=== PATIENT | male | born 1975 | race Two or more races ===

== ENCOUNTER 2019-01-23 17:56 | Emergency (ER) | payer OTHER ==
[~2019-01-23] VITALS: Ht 170.2 cm; Wt 88.5 kg
== END 2019-01-23 21:12 | disposition home or self-care (01) ==
LOC: ER 17:56
DX: S42.252A Displaced fracture of greater tuberosity of left humerus, initial encounter for closed fracture (principal); W18.39XA Other fall on same level, initial encounter; Y93.89 Activity, other specified; Y92.098 Other place in other non-institutional residence as the place of occurrence of the external cause; Y99.8 Other external cause status

== ENCOUNTER 2022-10-08 08:18 | Emergency (ER) | payer OTHER ==
[~2022-10-08] VITALS: Ht 170.2 cm; Wt 95.3 kg
== END 2022-10-08 10:22 | disposition home or self-care (01) ==
LOC: ER 08:18
DX: M25.59 Pain in other specified joint (principal)

== ENCOUNTER 2022-10-25 08:08 | Emergency (ER) | payer OTHER ==
[~2022-10-25] VITALS: Ht 170.2 cm; Wt 94.8 kg
== END 2022-10-25 10:53 | disposition home or self-care (01) ==
LOC: ER 08:08
DX: J10.1 Influenza due to other identified influenza virus with other respiratory manifestations (principal); R53.81 Other malaise